=== PATIENT | female | born 1985 | race Caucasian/White ===

== ENCOUNTER 2020-10-01 08:51 | Outpatient (REF) | payer OTHER, SELFPAY ==
[2020-10-01 11:10] LABS: MANUAL DIFF FLAG NO
[2020-10-01 11:18] LABS: Basophils Percent Auto 0.5 % (0-2); Eosinophils Absolute Auto 0.1 X10*3/uL (0.0-0.4); Eosinophils Percent Auto 2.3 % (0-4); Hematocrit 42.1 % (37-47); Hemoglobin 14.4 g/dl (12.0-16.0); Imm Gran Abs Auto 0.02 X10*3/uL (0.00-0.03); Imm Gran Pct Auto 0.4 % (0.0-0.4); Lymphocytes Absolute Auto 1.6 X10*3/uL (1.2-4.9); Lymphocytes Percent Auto 28.6 % (20-40); Mean Corpuscular HGB Conc 34.2 g/dl (31.0-35.0); Mean Corpuscular Hemoglobin 31.4 pg (27.0-33.0); Mean Corpuscular Volume 91.7 fL (80-98); Mean Platelet Volume 10.4 fL (9.4-12.3); Monocytes Absolute Auto 0.4 X10*3/uL (0.1-1.2); Monocytes Percent Auto 6.9 % (2-11); Neutrophils Absolute Auto 3.5 X10*3/uL (2.0-8.3); Neutrophils Percent Auto 61.3 % (45-73); Platelet Count 242 X10*3/uL (160-400); Red Blood Count 4.59 X10*6/uL (4.20-5.50); Red Cell Distribution Width 12.1 % (11.0-16.0); White Blood Count 5.7 X10*3/uL (4.8-10.8)
[2020-10-01 12:07] LABS: TSH reflex Free T4 0.63 uIU/mL (0.32-4.0)
[2020-10-01 12:10] LABS: Alanine Aminotransferase 26 U/L (0-31); Albumin Level 4.2 g/dL (3.5-5.0); Alkaline Phosphatase 66 U/L (39-117); Anion Gap 13 (12-20); Aspartate Amino Transferase 27 U/L (5-31); Bilirubin Total 0.7 mg/dL (0.0-1.0); Blood Urea Nitrogen 15 mg/dL (9-16); Calcium 8.6 mg/dL (8.4-10.2); Carbon Dioxide 27 mmol/L (22-29); Chloride 102 mmol/L (96-108); Cholesterol 131 mg/dL; Estimated Glomerular Filt Rate > 60; Glucose Fasting 89 mg/dL (60-99); HDL Cholesterol 50 mg/dL; LDL Cholesterol Calculated 70 mg/dl; Sodium 138 mmol/L (135-145); Total Protein 6.6 g/dL (6.5-8.0); Triglycerides 55 mg/dL
[2020-10-01 12:16] LABS: Folate 12.1 ng/mL (> or = 4.0); Vitamin B12 511 pg/mL (200-900)
== END 2020-10-01 08:52 | disposition home or self-care (01) ==
LOC: HO.HMGCLDS 08:51
PROVIDERS: PCP Internal Medicine; Visit Provider Internal Medicine
DX: Z00.01 Encounter for general adult medical examination with abnormal findings (principal); E66.9 Obesity, unspecified
CPT/HCPCS: 36415; 80053; 80061; 82306; 82607; 82746; 84443; 85025

== ENCOUNTER 2021-09-30 10:35 | Outpatient (REF) | payer OTHER, SELFPAY ==
[2021-09-30 14:18] LABS: Alanine Aminotransferase 19 U/L (0-31); Anion Gap 13 (12-20); Aspartate Amino Transferase 19 U/L (5-31); Blood Urea Nitrogen 18 mg/dL (9-16); Carbon Dioxide 29 mmol/L (22-29); Chloride 102 mmol/L (96-108); Cholesterol 148 mg/dL; Estimated Glomerular Filt Rate > 60; Glucose Fasting 94 mg/dL (60-99); HDL Cholesterol 64 mg/dL; LDL Cholesterol Calculated 69 mg/dl; Potassium 4.5 mmol/L (3.3-5.1); Sodium 139 mmol/L (135-145); Triglycerides 78 mg/dL
[2021-09-30 14:42] LABS: Vitamin D 25-OH Total 40.2 ng/mL (>30)
== END 2021-09-30 10:36 | disposition home or self-care (01) ==
LOC: HO.HMGCLDS 10:35
PROVIDERS: PCP Internal Medicine; Visit Provider Internal Medicine
DX: Z00.01 Encounter for general adult medical examination with abnormal findings (principal); E66.9 Obesity, unspecified; E55.9 Vitamin D deficiency, unspecified
CPT/HCPCS: 36415; 80048; 80061; 82306; 84450; 84460

== ENCOUNTER 2022-10-03 08:50 | Outpatient (REF) | payer OTHER, SELFPAY ==
[2022-10-03 12:32] LABS: Cholesterol 130 mg/dL; Glucose Fasting 92 mg/dL (60-99); HDL Cholesterol 44 mg/dL; LDL Cholesterol Calculated 78 mg/dl; Triglycerides 40 mg/dL
[2022-10-03 12:44] LABS: TSH reflex Free T4 0.57 uIU/mL (0.32-4.0)
== END 2022-10-03 08:51 | disposition home or self-care (01) ==
LOC: HO.HMGCLDS 08:50
PROVIDERS: PCP Internal Medicine; Visit Provider Internal Medicine
DX: Z00.00 Encounter for general adult medical examination without abnormal findings (principal); E55.9 Vitamin D deficiency, unspecified; E66.9 Obesity, unspecified; F41.8 Other specified anxiety disorders
CPT/HCPCS: 36415; 80061; 82306; 82947; 84443

== ENCOUNTER 2023-07-04 08:02 | Outpatient (AMB) | payer OTHER, SELFPAY ==
--- NOTE | 2023-07-04 08:18 | MHC.OFFWIV ---
Intake Vital Signs 07/04/23 08:19 Height 5 ft 7 in Weight 210 lb BMI 32.9 BP 128/74 Blood Pressure Location Rt brachial Position Sitting Pulse 87 Pulse Source Pulse Oximeter Temp 98.3 F Temp Source Temporal Artery Scan Pulse Oximetry (%) 98 Intake Visit Reasons: EP, sore throat (masked) Intake Note: pt is here for c/o sore throat Patient Tobacco Use Status: Never used Tobacco Allergies No Known Allergies Allergy (Verified 07/04/23 08:20) Do you need a note to return to daycare/school/sports/work: Yes HPI HPI Comments History of Present Illness Details the patient is a 37-year-old female in today for a sick visit. She states that she woke up 1 day prior to appointment feeling of sore throat and fluid in her left ear. She has a small child at home who is sick. She took Motrin prior to appointment with good affect. Patient has no significant past medical history. States it feels like strep throat she had previously. Will obtain strep swab in office Patient's head is normocephalic, right TM not visible due to impacted cerumen, left TM visible with some fluid and erythema. Sinuses not tender. Nostrils patent. Pharynx normal. lung sounds clear throughout bilaterally. Normal heart rate and rhythm. Patient does not have chest pain or shortness of breath. Patient likely has left otitis media. Patient unlikely to have epiglottitis or have a threat airway. Patient instructed to use supportive medicine to alternate between using Tylenol and Motrin. Patient also educated on using warm salt water gargle, as well as tea to help soothe sore throat. Augmentin for 10 Days to treat left otitis media. patient has been instructed to take entire course of antibiotics even if she starts to feel better. patient has been educated on signs of worsening symptoms and when to return to the walk-in. [facility] Medical History (Updated 07/04/23 @ 08:53 by JOSE LUIS Da Silva) Otitis media, left Mixed anxiety depressive disorder Acute anxiety Lip lesion Vitamin D deficiency Obesity (BMI 30.0-34.9) Dermoid cyst Surgical History Hx of wisdom tooth extraction History of right oophorectomy Family History Maternal Grandmother Myocardial infarction Brother Substance use disorder Mental health disorder Sister Mental health disorder Mother Mental health disorder Social History Housing: House Alcohol intake: current Patient Tobacco Use Status: Never used Tobacco e-Cigarette/Vaping Use: Never Used service: No Current occupational status: employed Cognitive needs: No Hearing needs: No Vision needs: Yes Review of Systems Const Denies headache(s) Eyes Denies eye discharge and Denies irritation ENT Reports as per HPI, Denies dizziness and Denies headache(s) Resp Reports as per HPI Neuro Denies dizziness and Denies headache(s) Physical Exam Vital Signs: Last Vital Signs Temp 98.3 F 07/04/23 08:19 Pulse 87 07/04/23 08:19 BP 128/74 07/04/23 08:19 Pulse Ox 98 07/04/23 08:19 BMI result Body Mass Index 32.9 vital signs reviewed and stable Const General: cooperative, healthy appearing and no acute distress HEENT Head: Yes normocephalic Ears: TM normal on the right and TM abnormal ( left TM) bulging and erythematous General nose exam: Normal nares present Face and sinus: Yes sinuses nontender Mouth: Normal oral and palatal mucosa present Throat: Yes uvula midline Neck Neck: Yes no lymphadenopathy Resp Effort & Inspection: normal respiratory effort Auscultation: clear to auscultation bilaterally Cardio Jugular venous distension: no JVD Rate: regular rate Rhythm: regular rhythm Heart sounds: S1 normal heart sound present and S2 normal heart sound present Results AMB Rapid Strep AMB Rapid Strep Negative Last Edit by Marjorie Stewart CMA on 07/04/23 08:35 Assessment & Plan Assessment & Plan (1) Otitis media, left: Code(s): H66.92 - Otitis media, unspecified, left ear Qualifiers: Chronicity: acute Recurrence: non-recurrent Plan patient will be given Augmentin to be taken twice a day for 10 days. Patient educated to continue entire course of antibiotics even if they continue to feel better prior to completion of treatment. Orders: Orders AMB Rapid Strep Screen Today Z13.9 - Encounter for screening, unspecified Medications: New amoxicillin-pot clavulanate 875-125 mg 1 tab PO Q12H 20 tabs 0RF Coding Level of Care Code Est Pt Level 3 (79529) Diagnoses Otitis media, left H66.92 Chronicity: acute Recurrence: non-recurrent Time Spent (min) 20
[2023-07-04 08:19] VITALS: BP 128/74; PULSE 87; TEMP 36.8; O2SAT 98; BMI 32.9
== END 2023-07-04 08:58 | disposition home or self-care (01) ==
PROVIDERS: PCP Internal Medicine; Visit Provider Nurse Practitioner Primary Care
DX: H66.92 Otitis media, unspecified, left ear (principal); J02.9 Acute pharyngitis, unspecified
CPT/HCPCS: 87880; 99213

== ENCOUNTER 2023-08-14 10:31 | Outpatient (REF) | payer OTHER, SELFPAY ==
--- NOTE | ~2023-08-14 | US_ITS ---
EXAMINATION: US VENOUS WITH DOPPLER UPPER EXTREMITY, LEFT CLINICAL INFORMATION: 2 painful masses left forearm, left arm pain and swelling COMPARISON: None available. TECHNIQUE: Ultrasound of the upper extremity is performed using compression sonography and color and pulse Doppler flow with assessment of augmentation of flow. There is also imaging and Doppler assessment of the jugular and subclavian veins. Spectral analysis with color-flow imaging is performed. FINDINGS: Respiratory variation, normal compression, and augmented flow are noted throughout the upper extremity including the axillary, brachial, basilic, cephalic, and radial and ulnar veins. The left brachial veins appear duplicated (double arterial/venous systems).? High radial/ulnar vein branches into the upper arm. There is normal flow in the internal jugular and subclavian veins. There is no visible deep or superficial thrombophlebitis. Ultrasound of the area of the 2 palpable lumps in the medial left forearm, just below the elbow, demonstrate a 1.2 x 0.8 x 1.0 cm and 2.3 x 0.6 x 1.6 cm solid, subtle, superficial, hyperechoic area which may represent lipomas. US/US venous duplex UE LT IMPRESSION: 1. No DVT demonstrated in the left upper extremity. 2. Probable lipomas in the area of the 2 palpable lumps in the medial left forearm.
--- NOTE | ~2023-08-14 | US_ITS ---
EXAMINATION: ULTRASOUND EXTREMITY NONVASCULAR LIMITED CLINICAL INFORMATION: Painful forearm, painful mass on right forearm COMPARISON: Venous ultrasound of the left upper extremity with evaluation of 2 painful masses on the left forearm TECHNIQUE: Real-time ultrasound of the medial right forearm, just below the elbow, over the palpable area indicated by the patient. FINDINGS: Ultrasound of the area of the palpable lump in the medial right forearm, just below the elbow, demonstrate a 2.2 x 0.6 x 1.6 cm solid, subtle, superficial, hyperechoic area which may represent a lipoma. This is similar to the findings seen in the left forearm. US/US extremity nonvascular munoz IMPRESSION: Probable lipoma in the area of the palpable lump in the medial right forearm.
== END 2023-08-14 10:32 | disposition home or self-care (01) ==
LOC: HO.HMGCX 10:31
PROVIDERS: PCP Internal Medicine; Visit Provider Internal Medicine
DX: R22.31 Localized swelling, mass and lump, right upper limb (principal); R22.32 Localized swelling, mass and lump, left upper limb; M79.632 Pain in left forearm; M79.89 Other specified soft tissue disorders
CPT/HCPCS: 76882; 93971

== ENCOUNTER 2023-09-22 09:06 | Outpatient (AMB) | payer OTHER, SELFPAY ==
[2023-09-22 09:21] VITALS: BP 124/70; PULSE 78; TEMP 36.8; O2SAT 99; BMI 33.4
--- NOTE | 2023-09-22 09:21 | MHC.OFFWIV ---
Intake Vital Signs 09/22/23 09:21 Height 5 ft 7 in Weight 96.615 kg BMI 33.4 BP 124/70 Blood Pressure Location Lt brachial Position Sitting Pulse 78 Pulse Source Pulse Oximeter Temp 98.2 F Temp Source Temporal Artery Scan Pulse Oximetry (%) 99 Intake Visit Reasons: EP Cough [phone] Intake Note: pt is here today for cough started monday Patient Tobacco Use Status: Never used Tobacco Allergies No Known Allergies Allergy (Verified 09/22/23 09:23) Do you need a note to return to daycare/school/sports/work: No HPI HPI Comments History of Present Illness Details 37-year-old female history of anxiety, obesity, presenting to the clinic for evaluation of cough that started Monday also having a slight diffuse headache (without trauma visual disturbances, weakness) started yesterday w/ cough and monday prior to that had subjective fever. Patient reports she just feels unwell and tired. Sx worse at night. No known sick contacts. Denies fevers, chills, chest pain, shortness of breath, vision changes, dizziness, weakness, trauma, difficulties with ambulation, nausea, vomiting, abdominal pain, diarrhe at this time. Physical examination benign Likely viral illness versus asthma versus bronchitis. Unlikely bacterial pneumonia, pulmonary embolism ( perc -), ACS, no signs of respiratory distress. No signs of intracranial hemorrhage, stroke, posterior stroke, meningitis or encephalitis Plan at this time will discharge with, prednisone, benzonatate and albuterol. [facility] Medical History Lipoma of left forearm Otitis media, left Mixed anxiety depressive disorder Acute anxiety Lip lesion Vitamin D deficiency Obesity (BMI 30.0-34.9) Dermoid cyst Surgical History Hx of wisdom tooth extraction History of right oophorectomy Family History Maternal Grandmother Myocardial infarction Brother Substance use disorder Mental health disorder Sister Mental health disorder Mother Mental health disorder Social History Housing: House Alcohol intake: current Patient Tobacco Use Status: Never used Tobacco e-Cigarette/Vaping Use: Never Used service: No Current occupational status: employed Cognitive needs: No Hearing needs: No Vision needs: Yes Review of Systems Const All systems reviewed & are unremarkable except as noted in HPI and below Physical Exam Vital Signs: Last Vital Signs Temp 98.2 F 09/22/23 09:21 Pulse 78 09/22/23 09:21 BP 124/70 09/22/23 09:21 Pulse Ox 99 09/22/23 09:21 BMI result Body Mass Index 33.4 Vital signs stable Appearance: Alert.? Oriented X3.? No acute distress.? Head: Normocephalic, atraumatic, no step-offs or deformities Eyes: Pupils equal, round and reactive to light.? ENT: Pharynx normal.? Neck: Normal inspection.? Neck supple.? CVS: Normal heart rate and rhythm.? Pulses normal.? Respiratory: No respiratory distress.? Breath sounds normal.? Abdomen: Soft and nontender.? Skin: Skin warm and dry.? Normal skin color.? Normal skin turgor.? Extremities: No lower extremity edema.? No calf ttp. 5/5 strength to bilateral upper and lower extremities Neuro: Oriented X 3.? No motor deficit.? No sensory deficit. CN 2-12 intact . Normal [id number] crar-lm-[id number] steady tandem gait normal coordination. NIH stroke scale 0 Assessment & Plan Assessment & Plan (1) Viral illness: Code(s): B34.9 - Viral infection, unspecified Plan Take your medications as prescribed. If you were prescribed antibiotics today, it is important that you take your medication to their entirety, do not skip any doses, do not finish them early. Follow-up with your primary care provider this week. Return to the emergency department with new or worsening symptoms. Such as fevers, chills, chest pain, shortness of breath, nausea, vomiting, dizziness, headache, vision changes, lethargy In case of emergency call 911 Medications: New prednisone 40 mg (2 x 20 mg) PO DAILY 10 tabs 0RF 5 days albuterol sulfate 90 mcg/actuation 2 puffs inhalation Q6H PRN 6.7 grams 0RF shortness of breath or wheezing benzonatate 100 mg PO BID PRN 14 caps 0RF cough Coding Level of Care Code Est Pt Level 3 (52071) Diagnoses Viral illness B34.9
== END 2023-09-22 10:40 | disposition home or self-care (01) ==
PROVIDERS: PCP Internal Medicine; Visit Provider Physician Assistant
DX: B34.9 Viral infection, unspecified (principal)
CPT/HCPCS: 99213

== ENCOUNTER 2023-10-04 08:24 | Outpatient (AMB) | payer OTHER, SELFPAY ==
[2023-10-04 08:29] VITALS: BP 128/84; PULSE 86; O2SAT 98; BMI 33.4
--- NOTE | 2023-10-04 08:29 | A.OFFPC_ITS ---
Vital Signs 10/04/23 08:29 Height 5 ft 7 in Weight 213 lb BMI 33.4 BP 128/84 Blood Pressure Location Lt brachial Position Sitting Pulse 86 Pulse Source Pulse Oximeter Pulse Oximetry (%) 98 Oxygen Delivery Method Room Air Intake Visit Reasons: Annual PE Intake Note: Pt is here today for her PE: Papsmear 01/04/21 Is last menstrual period known: Yes Last menstrual period: 09/20/23 Allergies No Known Allergies Allergy (Verified 10/04/23 09:06) Medication List - Last Reconciled 10/04/23 by Sanjana Whyte MD albuterol sulfate 90 mcg/actuation 2 puffs inhalation Q6H PRN benzonatate 100 mg PO BID PRN levonorgestrel-ethinyl estrad 0.1-20 mg-mcg (Vienva) 1 tab PO DAILY multivitamin 1 tab PO DAILY Tobacco use date assessed: 10/04/23 Dental Screening Dental Screen Date: 10/04/23 Did you have a dental visit in the last 12 months?: Yes Did you have a dental problem in the last 6 months where you did not have access to dental care?: No Was dental information given to patient?: Patient has dentist HPI Annual PE HPI Details 37 year old lady here today for her phys ical exam. She goes to [facility] for her routine Pap and pelvic exam, currently up-to-date. She does not want to get any vaccinations at present time. Complains of a cough now productive of yellow phlegm accompanied by frontal headaches, generalized body aches but no fever. This has been present now for more than 10 days. Initially was seen at the walk-in and treated for viral illness and prescribed prednisone and albuterol inhaler and benzonatate capsules which afforded only temporary relief. Has tested negative for COVID twice already [facility] Medical History Lipoma of left forearm Otitis media, left Mixed anxiety depressive disorder Acute anxiety Lip lesion Vitamin D deficiency Obesity (BMI 30.0-34.9) Dermoid cyst Surgical History Hx of wisdom tooth extraction History of right oophorectomy Family History Maternal Grandmother Myocardial infarction Brother Substance use disorder Mental health disorder Sister Mental health disorder Mother Mental health disorder Social History Housing: House Alcohol intake: current Patient Tobacco Use Status: Never used Tobacco e-Cigarette/Vaping Use: Never Used service: No Current occupational status: employed Cognitive needs: No Hearing needs: No Vision needs: Yes Female Reproductive History Menstrual Date of last menstrual period: 09/20/23 Questionnaire PHQ-9 Over the last 2 weeks, how often have you been bothered by any of the following problems? 1. Little interest or pleasure in doing things: not at all 2. Feeling down, depressed, or hopeless: not at all 3. Trouble falling or staying asleep, or sleeping too much: several days 4. Feeling tired or having little energy: several days 5. Poor appetite or overeating: not at all 6. Feeling bad about yourself - or that you are a failure or have let yourself or your family down: not at all 7. Trouble concentrating on things, such as reading the newspaper or watching television: not at all 8. Moving or speaking so slowly that other people could have noticed. Or the opposite - being so fidgety or restless that you have been moving around a lot more than usual: not at all 9. Thoughts that you would be better off or of hurting yourself in some way: not at all Total score: 2 Depression Screening Interpretation: Negative Depression Screening Done: Yes 75591 - PHQ-9 Billing: Yes Source: Developed by Drs. Jcarlos James, Kaleigh Lin, Jaden Gaston and colleagues, with an educational jacquelin from [employer]. Thrive Questionnaire Date Thrive assessed: 10/04/23 I am a: Patient What is your living situation today?: I have a steady place to live Within the past 12 months, did the food you bought not last and you didn't have the money to get more?: Never true Within the past 12 months, did you worry whether your food would run out before you got money to buy more?: Never true Do you have trouble paying for medicines?: No Do you have trouble getting transportation to medical appointments?: No Do you have trouble paying your heating and electricity bill?: No Do you have trouble taking care of your child, family member or friend?: No Do you have trouble with day-to-day activities such as bathing, preparing meals, shopping, managing finances, etc.?: No Are you currently unemployed and looking for a job?: No Are you interested in more education?: No THRIVE Score: 0 AUDIT C Alcohol Use Questionnaire (AUDIT-C) 1. How often do you have a drink containing alcohol?: Monthly or less 2. How many drinks containing alcohol do you have on a typical day when you are drinking?: 3 or 4 3. How often do you have six or more drinks on one occasion?: Never Total Score: 2 SHYAM-7 AMB Questionnaire SHYAM-7 Date SHYAM - 7 assessed: 10/03/22 Feeling nervous, anxious, or on edge: 1 = Several days Not being able to stop or control worryin = Not at all Worrying too much about different things: 1 = Several days Trouble relaxin = Several days Being so restless that it is hard to sit still: 0 = Not at all Becoming easily annoyed or irritable: 1 = Several days Feeling afraid as if something awful might happen: 0 = Not at all Total SHYAM-7 score (0-4 normal; 5-9 mild; 10-14 moderate; 15-21 severe): 4 Source: Developed by Drs. Jcarlos James, Kaleigh Lin, Jaden Gaston and colleagues, with an educational jacquelin from [employer]. SHYAM-7 Assessment Billing SHYAM-7 Assessment Tool: SHYAM-7 Assessment 45759 Review of Systems Const Reports body aches, Denies fever(s), Reports headache(s) (Front) and Denies weakness Eyes Details: Wears contact lenses, sees [facility] Denies change in vision ENT Denies dizziness, Denies ear discharge, Reports otalgia, Reports facial pain (Right maxillary area), Reports headache(s) (Front), Denies nasal congestion, Denies nasal discharge and Reports post nasal drip Card Denies chest pain, Denies lightheadedness, Denies palpitations and Denies dyspnea Resp Reports as per HPI, Denies chest congestion, Denies dyspnea and Denies wheezing GI Denies abdominal pain, Denies change in bowel habits and Denies heartburn Denies urinary frequency, Denies dysuria and Denies urinary urgency Musc Denies back pain, Denies myalgias, Denies arthralgias, Denies joint swelling, Denies limited range of motion, Denies muscle cramps, Denies muscle weakness and Denies stiffness Skin/Breast Reports new lesions (Nonpainful lump on left forearm) and Denies rash Neuro Denies dizziness, Reports headache(s) (Front) and Denies weakness Psych Reports as per HPI Endo Denies polydipsia, Denies polyuria and Denies palpitations Rachid/Lymph Denies easy bleeding and Denies easy bruising Aller/Immun Denies seasonal rhinorrhea and Denies wheezing Physical exam (Primary Care) Vital Signs: Last Vital Signs Pulse 86 10/04/23 08:29 BP 128/84 10/04/23 08:29 Pulse Ox 98 10/04/23 08:29 Oxygen Delivery Method Room Air 10/04/23 08:29 BMI result Body Mass Index 33.4 Tobacco/Smoking Status: Tobacco use Status Tobacco use date assessed 10/04/23 10/04/23 08:38 Patient Tobacco Use Status Never used Tobacco 10/04/23 08:38 e-Cigarette/Vaping Use Never Used 10/04/23 08:38 PHQ-9: PHQ-9 Score PHQ-9: Total score 5 10/04/23 08:38 Depression Screening Interpretation: Negative Thrive Assessment: Date of Thrive Assessment Date Thrive assessed 10/04/23 10/04/23 08:38 Const General: no acute distress and alert Nutritional Appearance: obese Orientation/consciousness: patient oriented x3 HENMT Head: Yes normocephalic Ears: external ears normal, TM's normal bilaterally and Abnormal EAC present erythema bilateral General nose exam: Normal external nose present and No nasal discharge present Face and sinus: Yes face symmetric and Yes sinus tenderness (Right maxillary area) Mouth: Normal oral and palatal mucosa present, oropharynx normal and moist mucous membranes Eyes General: appearance normal, both eyes and all related structures Eyelids: Yes eyelids normal Conjunctivae: conjunctivae normal Sclerae: sclerae normal Pupils: Equal, round and reactive pupils present EOM: EOMs intact bilaterally Neck Neck: Yes full ROM, Yes no lymphadenopathy and Yes supple Thyroid: Thyroid normal Chest Breast/axilla palpation: normal palpation of the breasts Resp Effort & Inspection: normal respiratory effort and able to speak in complete sentences Auscultation: clear to auscultation bilaterally Cardio Rate: regular rate Rhythm: regular rhythm Heart sounds: S1 normal heart sound present and S2 normal heart sound present GI Palpation (GI): Soft to palpation, nontender, no guarding and no masses Auscultation: normal bowel sounds General: Yes no CVA tenderness Back/Spine/Pelvis Back: no CVA tenderness and No back tenderness Skin Other: Small palpable mobile nontender nodular lesion on left forearm Neuro General: patient oriented x3, gait normal, moves all extremities, Normal light touch and pain sensation, no focal motor deficits and CN's II-XI intact bilaterally Cranial nerves: Yes Equal, round and reactive pupils present Cognition (Neuro): normal cognition Gait exam (Neuro): Normal gait present Motor exam (neuro): 5/5 motor strength present throughout Extrem General: Yes normal to inspection, Yes full ROM, Yes no joint enlargement, Yes no pedal edema and Yes normal gait Psych Appearance: grossly normal and well kempt Mental Status: mental status grossly normal Speech and movement: Normal speech and movement present Affect: normal affect Attitude: cooperative Thought process: Normal thought process present Thought content: Normal thought content present Assessment and Plan Assessment & Plan (1) Annual visit for general adult medical examination with abnormal findings: Code(s): Z00.01 - Encounter for general adult medical examination with abnormal findings Plan: Will check appropriate labs. Continue with regular dental visit every 6 months and regular eye exams, at least every 2 years. Take adequate calcium in diet and vitamin-D 3 at 2000 IU per cap once a day, in addition to weight-bearing exercises to help maintain good muscle tone and weight control. Instructed to do self-breast exam, and recommended to get yearly mammogram, starting at age 40. Sees [facility] for routine Pap and pelvic exam, currently up-to-date declines getting any vaccines at present time (2) Vitamin D deficiency: Code(s): E55.9 - Vitamin D deficiency, unspecified Plan: Check vitamin-D (3) Obesity (BMI 30.0-34.9): Code(s): E66.9 - Obesity, unspecified Plan: Discussed need to increase activity and wt reduction. Recommended focusing on improving your health instead of dieting. : Eat Mediterranean diet, limit foods high in fat, sugar, and calories, eat slowly, pay attention to portion sizes, plan your meals ahead of time, start regular physical activity 150 minutes of moderate intensity exercise or 90 minutes/week of vigorous exercise and increase water intake. (4) Acute sinusitis: Code(s): J01.90 - Acute sinusitis, unspecified Plan: Prescription sent for amoxicillin clavulanic acid 875 mg per tablet to take 1 every 12 hours for 10 days (5) Lipoma of left forearm: Code(s): D17.22 - Benign lipomatous neoplasm of skin and subcutaneous tissue of left arm Plan: Currently asymptomatic Orders: Orders Complete Blood Count Auto Diff Today E55.9 - Vitamin D deficiency, unspecified, E66.9 - Obesity, unspecified, J01.90 - Acute sinusitis, unspecified, Z00.01 - Encounter for general adult medical examination with abnormal findings Vitamin D 25-OH Total Today E55.9 - Vitamin D deficiency, unspecified, E66.9 - Obesity, unspecified, J01.90 - Acute sinusitis, unspecified, Z00.01 - Encounter for general adult medical examination with abnormal findings Basic Metabolic Panel Fasting Today E55.9 - Vitamin D deficiency, unspecified, E66.9 - Obesity, unspecified, J01.90 - Acute sinusitis, unspecified, Z00.01 - Encounter for general adult medical examination with abnormal findings Lipid Panel Today E55.9 - Vitamin D deficiency, unspecified, E66.9 - Obesity, unspecified, J01.90 - Acute sinusitis, unspecified, Z00.01 - Encounter for general adult medical examination with abnormal findings Medications: New amoxicillin-pot clavulanate 875-125 mg 1 tab PO Q12H 20 tabs 0RF Coding Level of Care Code Est Pt Prev Care 18-39y(25340) Diagnoses Annual visit for general adult medical examination with abnormal findings Z00.01 Vitamin D deficiency E55.9 Obesity (BMI 30.0-34.9) E66.9 Acute sinusitis J01.90 Lipoma of left forearm D17.22 Additional Codes SHYAM-7 Assessment Billing - SHYAM-7 Assessment Tool: SHYAM-7 Assessment 64525 ([id number])
== END 2023-10-04 09:20 | disposition home or self-care (01) ==
PROVIDERS: Visit Provider Internal Medicine
DX: Z00.01 Encounter for general adult medical examination with abnormal findings (principal); Z68.33 Body mass index [BMI] 33.0-33.9, adult; E66.9 Obesity, unspecified; J01.90 Acute sinusitis, unspecified; E55.9 Vitamin D deficiency, unspecified; D17.22 Benign lipomatous neoplasm of skin and subcutaneous tissue of left arm
CPT/HCPCS: 99213; 99395

== ENCOUNTER 2023-10-04 09:21 | Outpatient (REF) | payer OTHER, SELFPAY ==
[2023-10-04 11:48] LABS: Basophils Percent Auto 0.5 % (0-2); Eosinophils Absolute Auto 0.1 X10*3/uL (0.0-0.4); Eosinophils Percent Auto 1.4 % (0-4); Hematocrit 41.2 % (37.0-47.0); Hemoglobin 14.2 g/dl (12.0-16.0); Imm Gran Abs Auto 0.04 X10*3/uL (0.00-0.03); Imm Gran Pct Auto 0.5 % (0.0-0.4); Lymphocytes Absolute Auto 0.6 X10*3/uL (1.2-4.9); Lymphocytes Percent Auto 6.9 % (20-40); MANUAL DIFF FLAG NO; Mean Corpuscular HGB Conc 34.5 g/dl (31.0-35.0); Mean Corpuscular Hemoglobin 31.3 pg (27.0-33.0); Mean Corpuscular Volume 90.7 fL (80.0-98.0); Mean Platelet Volume 9.9 fL (9.4-12.3); Monocytes Absolute Auto 0.8 X10*3/uL (0.1-1.2); Monocytes Percent Auto 9.9 % (2-11); Neutrophils Absolute Auto 6.5 x10*3/uL (2.0-8.3); Neutrophils Percent Auto 80.8 % (45-73); Platelet Count 221 X10*3/uL (160-400); Red Blood Count 4.54 X10*6/uL (4.20-5.50); White Blood Count 8.1 X10*3/uL (4.8-10.8)
[2023-10-04 12:57] LABS: Anion Gap 11 (12-20); Blood Urea Nitrogen 16 mg/dL (9-16); Calcium 9.5 mg/dL (8.4-10.2); Carbon Dioxide 27 mmol/L (22-29); Chloride 103 mmol/L (96-108); Cholesterol 125 mg/dL (<200); Estimated Glomerular Filt Rate > 60; Glucose Fasting 95 mg/dL (60-99); HDL Cholesterol 55 mg/dL (>40); LDL Cholesterol Calculated 63 mg/dL (<100); Potassium 3.9 mmol/L (3.3-5.1); Sodium 137 mmol/L (135-145); Triglycerides 37 mg/dL (<150)
[2023-10-04 13:18] LABS: Vitamin D 25-OH Total 39.7 ng/mL (>30)
== END 2023-10-04 09:22 | disposition home or self-care (01) ==
LOC: HO.HMGCLDS 09:21
PROVIDERS: PCP Internal Medicine; Visit Provider Internal Medicine
DX: Z00.01 Encounter for general adult medical examination with abnormal findings (principal); E55.9 Vitamin D deficiency, unspecified; E66.9 Obesity, unspecified; J01.90 Acute sinusitis, unspecified
CPT/HCPCS: 36415; 80048; 80061; 82306; 85025

== ENCOUNTER 2024-04-24 08:45 | Outpatient (AMB) | payer OTHER, SELFPAY ==
[2024-04-24 09:03] VITALS: BP 114/76; PULSE 104; TEMP 36.9; O2SAT 98; BMI 29.4
--- NOTE | 2024-04-24 09:03 | MHC.OFFWIV ---
Intake Vital Signs 04/24/24 09:03 Height 5 ft 7 in Weight 187 lb 8 oz BMI 29.4 BP 114/76 Blood Pressure Location Rt brachial Position Sitting Pulse 104 H Pulse Source Pulse Oximeter Temp 98.4 F Temp Source Oral Pulse Oximetry (%) 98 Oxygen Delivery Method Room Air Intake Visit Reasons: EP- fever, sore throat, stomach aches Intake Note: Carmen is a 38 year old female who presents to the office today for a fever,sore throat,body aches,headache, and a cough that started 2 days ago. Patient Tobacco Use Status: Never used Tobacco Allergies No Known Allergies Allergy (Verified 04/24/24 09:06) HPI HPI Comments History of Present Illness Details Patient is a 38-year-old female complaining of fever with a tmax 101.9F, sore throat, body aches, headache, and a cough that started 2 days ago. She states that the body aches are so bad that she could not even get out of bed so she took some Tylenol and some Motrin and some Mucinex which seems to be helping a little bit because she was able to get out of bed this morning. She states she has been drinking mekhi tonia and water but not able to tolerate much else. She states she did test for COVID twice and was negative PFSH Medical History Lipoma of left forearm Otitis media, left Mixed anxiety depressive disorder Acute anxiety Lip lesion Vitamin D deficiency Obesity (BMI 30.0-34.9) Dermoid cyst Surgical History Hx of wisdom tooth extraction History of right oophorectomy Family History Maternal Grandmother Myocardial infarction Brother Substance use disorder Mental health disorder Sister Mental health disorder Mother Mental health disorder Social History Housing: House Alcohol intake: current Patient Tobacco Use Status: Never used Tobacco e-Cigarette/Vaping Use: Never Used service: No Current occupational status: employed Cognitive needs: No Hearing needs: No Vision needs: Yes Review of Systems Const All systems reviewed & are unremarkable except as noted in HPI and below Physical Exam Vital Signs: Last Vital Signs Temp 98.4 F 04/24/24 09:03 Pulse 104 H 04/24/24 09:03 BP 114/76 04/24/24 09:03 Pulse Ox 98 04/24/24 09:03 Oxygen Delivery Method Room Air 04/24/24 09:03 BMI result Body Mass Index 29.4 Const General: cooperative, healthy appearing, comfortable and no acute distress Orientation/consciousness: patient oriented x3 Limitations: no limitations HEENT Head: Yes normal to inspection Ears: hearing grossly normal bilaterally, external ears normal and TM's normal bilaterally General nose exam: Normal external nose present, Normal nares present and No nasal discharge present Face and sinus: Yes normal facial exam and Yes sinuses nontender Mouth: Normal oral and palatal mucosa present and moist mucous membranes Throat: Yes tonsils normal, Yes uvula midline and Yes posterior oropharynx abnormal (Erythema) Eyes General: appearance normal, both eyes and all related structures Neck Neck: Yes normal visual inspection Resp Effort & Inspection: normal respiratory effort, able to speak in complete sentences, Actively coughing, no respiratory distress, not tachypneic, no tripod positioning and no use of accessory muscles Auscultation: clear to auscultation bilaterally Cardio Rate: regular rate Rhythm: regular rhythm Heart sounds: normal S1 and S2 Skin General skin exam: no rashes or lesions noted Neuro General: patient oriented x3 Extrem General: Yes normal to inspection and Yes no clubbing, cyanosis or edema Results AMB Rapid Strep AMB Rapid Strep Negative Last Edit by Fiona Soares CMA on 04/24/24 09:17 Assessment & Plan Assessment & Plan (1) Upper respiratory tract infection: Code(s): J06.9 - Acute upper respiratory infection, unspecified Qualifiers: URI type: unspecified URI Qualified Code(s): J06.9 - Acute upper respiratory infection, unspecified Plan: Recommended patient treat herself with [id number] medications for her symptoms. Sent flu COVID and RSV testing. If COVID is negative, I may send an antibiotic to her pharmacy. Plan See above Orders: Orders SARS-CoV2/FLU/RSV Today J06.9 - Acute upper respiratory infection, unspecified Coding Level of Care Code Est Pt Level 3 (87399) Diagnoses Upper respiratory tract infection, unspecified type J06.9 URI type: unspecified URI
== END 2024-04-24 09:38 | disposition home or self-care (01) ==
PROVIDERS: PCP Internal Medicine; Visit Provider Physician Assistant
DX: J06.9 Acute upper respiratory infection, unspecified (principal); Z13.9 Encounter for screening, unspecified
CPT/HCPCS: 87880; 99213

== ENCOUNTER 2024-04-24 09:15 | Outpatient (REF) | payer OTHER, SELFPAY ==
[2024-04-24 11:57] LABS: Influenza A PCR NEGATIVE (Negative); Influenza B PCR NEGATIVE (Negative); Resp Syncy Virus RNA Qual PCR NEGATIVE (Negative); SARS COV2 PCR INHOUSE NEGATIVE (Negative)
== END 2024-04-24 09:16 | disposition home or self-care (01) ==
LOC: HO.LAB 09:15
PROVIDERS: Visit Provider Physician Assistant
DX: J06.9 Acute upper respiratory infection, unspecified (principal)
CPT/HCPCS: 0241U

== ENCOUNTER 2024-10-09 08:27 | Outpatient (AMB) | payer OTHER, SELFPAY ==
[2024-10-09 08:52] VITALS: BP 112/80; PULSE 90; RESP 18; TEMP 36.8; O2SAT 100; BMI 30.4
--- NOTE | 2024-10-09 08:52 | A.OFFPC_ITS ---
Vital Signs 10/09/24 08:52 Height 5 ft 7 in Weight 194 lb BMI 30.4 BP 112/80 Blood Pressure Location Rt brachial Position Sitting Respiration 18 Pulse 90 Pulse Source Pulse Oximeter Temp 98.2 F Temp Source Oral Pulse Oximetry (%) 100 Oxygen Delivery Method Room Air Intake Visit Reasons: Annual exam Intake Note: Pt is here today for her PE Is last menstrual period known: Yes Last menstrual period: 09/17/24 Allergies No Known Allergies Allergy (Verified 10/09/24 09:17) Medication List - Last Reconciled 10/09/24 by Sanjana Whyte MD multivitamin 1 tab PO DAILY Tobacco use date assessed: 10/09/24 Dental Screening Dental Screen Date: 10/09/24 Did you have a dental visit in the last 12 months?: No Did you have a dental problem in the last 6 months where you did not have access to dental care?: No Was dental information given to patient?: Patient has dentist HPI Annual exam HPI Details 38-year-old lady , here today for her ph ysical exam. She now goes to [facility], for her routine Pap and pelvic exam, just had an exam this year per patient. She is now due for a breast cancer screening. Has been feeling well, with no complaints at present time. [facility] Medical History Lipoma of left forearm Mixed anxiety depressive disorder Vitamin D deficiency Obesity (BMI 30.0-34.9) Dermoid cyst Surgical History Hx of wisdom tooth extraction History of right oophorectomy Family History Maternal Grandmother Myocardial infarction Brother Substance use disorder Mental health disorder Sister Mental health disorder Mother Mental health disorder Social History Housing: House Alcohol intake: current Patient Tobacco Use Status: Never used Tobacco e-Cigarette/Vaping Use: Never Used service: No Current occupational status: employed Cognitive needs: No Hearing needs: No Vision needs: Yes Female Reproductive History Menstrual Date of last menstrual period: 09/17/24 Questionnaire PHQ-9 Over the last 2 weeks, how often have you been bothered by any of the following problems? 1. Little interest or pleasure in doing things: not at all 2. Feeling down, depressed, or hopeless: not at all 3. Trouble falling or staying asleep, or sleeping too much: several days 4. Feeling tired or having little energy: several days 5. Poor appetite or overeating: not at all 6. Feeling bad about yourself - or that you are a failure or have let yourself or your family down: not at all 7. Trouble concentrating on things, such as reading the newspaper or watching television: not at all 8. Moving or speaking so slowly that other people could have noticed. Or the opposite - being so fidgety or restless that you have been moving around a lot more than usual: not at all 9. Thoughts that you would be better off or of hurting yourself in some way: not at all Total score: 2 Depression Screening Interpretation: Negative Depression Screening Done: Yes 90533 - PHQ-9 Billing: Yes Source: Developed by Drs. Jcarlos James, Kaleigh Lin, Jaden Gaston and colleagues, with an educational jacquelin from [employer]. Thrive Questionnaire Date Thrive assessed: 10/09/24 I am a: Patient What is your living situation today?: I have a steady place to live Within the past 12 months, did the food you bought not last and you didn't have the money to get more?: Never true Within the past 12 months, did you worry whether your food would run out before you got money to buy more?: Never true Do you have trouble paying for medicines?: I choose not to answer this question Do you have trouble getting transportation to medical appointments?: No Do you have trouble paying your heating and electricity bill?: No Do you have trouble taking care of your child, family member or friend?: No Do you have trouble with day-to-day activities such as bathing, preparing meals, shopping, managing finances, etc.?: No Are you currently unemployed and looking for a job?: No Are you interested in more education?: No Please select the resources that you would like help with: None Currently or been in a relationship where the following occur: No concerns reported THRIVE Score: 0 AUDIT C Alcohol Use Questionnaire (AUDIT-C) 1. How often do you have a drink containing alcohol?: Monthly or less 2. How many drinks containing alcohol do you have on a typical day when you are drinking?: 1 or 2 3. How often do you have six or more drinks on one occasion?: Less than monthly Total Score: 2 SHYAM-7 AMB Questionnaire SHYAM-7 Date SHYAM - 7 assessed: 10/09/24 Feeling nervous, anxious, or on edge: 0 = Not at all Not being able to stop or control worryin = Not at all Worrying too much about different things: 0 = Not at all Trouble relaxin = Not at all Being so restless that it is hard to sit still: 0 = Not at all Becoming easily annoyed or irritable: 0 = Not at all Feeling afraid as if something awful might happen: 0 = Not at all Total SHYAM-7 score (0-4 normal; 5-9 mild; 10-14 moderate; 15-21 severe): 0 Source: Developed by Drs. Jcarlos James, Kaleigh Lin, Jaden Gaston and colleagues, with an educational jacquelin from [employer]. SHYAM-7 Assessment Billing SHYAM-7 Assessment Tool: SHYAM-7 Assessment 02339 Review of Systems Const Denies fever(s) and Denies weakness Eyes Details: Wears contact lenses, sees [facility] Denies change in vision ENT Denies dizziness, Denies ear discharge, Denies nasal congestion and Denies nasal discharge Card Denies chest pain, Denies lightheadedness, Denies palpitations and Denies dyspnea Resp Denies chest congestion, Denies dyspnea and Denies wheezing GI Denies abdominal pain, Denies change in bowel habits and Denies heartburn Denies urinary frequency, Denies dysuria and Denies urinary urgency Musc Denies back pain, Denies myalgias, Denies arthralgias, Denies joint swelling, Denies limited range of motion, Denies muscle cramps, Denies muscle weakness and Denies stiffness Skin/Breast Details: Lipoma left forearm still present but seems to have decreased in size, as per patient, has been seen at [facility] dermatology for her skin cancer screening Denies rash Neuro Denies dizziness and Denies weakness Psych Reports no additional complaints Endo Denies polydipsia, Denies polyuria and Denies palpitations Rachid/Lymph Denies easy bleeding and Denies easy bruising Aller/Immun Denies seasonal rhinorrhea and Denies wheezing Physical exam (Primary Care) Vital Signs: Last Vital Signs Temp 98.2 F 10/09/24 08:52 Pulse 90 10/09/24 08:52 Resp 18 10/09/24 08:52 BP 112/80 10/09/24 08:52 Pulse Ox 100 10/09/24 08:52 Oxygen Delivery Method Room Air 10/09/24 08:52 BMI result Body Mass Index 30.4 Tobacco/Smoking Status: Tobacco use Status Tobacco use date assessed 10/09/24 10/09/24 08:53 Patient Tobacco Use Status Never used Tobacco 10/09/24 08:53 e-Cigarette/Vaping Use Never Used 10/09/24 08:53 PHQ-9: PHQ-9 Score PHQ-9: Total score 2 10/09/24 09:00 Depression Screening Interpretation: Negative Thrive Assessment: Date of Thrive Assessment Date Thrive assessed 10/09/24 10/09/24 09:00 Currently or been in a relationship where the following occur: No concerns reported Advance Care Planning discussion: Completed/Scanned Date of discussion: 10/09/24 Who was present: Patient Forms completed: Health Care Proxy Time spent: 16-45 minutes Actual minutes spent: 2 Const General: no acute distress and alert Nutritional Appearance: obese Orientation/consciousness: patient oriented x3 HENMT Head: Yes normocephalic Ears: external ears normal and TM's normal bilaterally General nose exam: Normal external nose present and No nasal discharge present Face and sinus: Yes face symmetric Mouth: Normal oral and palatal mucosa present, oropharynx normal and moist mucous membranes Eyes General: appearance normal, both eyes and all related structures Eyelids: Yes eyelids normal Conjunctivae: conjunctivae normal Sclerae: sclerae normal Pupils: Equal, round and reactive pupils present EOM: EOMs intact bilaterally Neck Neck: Yes full ROM, Yes no lymphadenopathy and Yes supple Thyroid: Thyroid normal Chest Breast/axilla palpation: normal palpation of the breasts Resp Effort & Inspection: normal respiratory effort and able to speak in complete sentences Auscultation: clear to auscultation bilaterally Cardio Rate: regular rate Rhythm: regular rhythm Heart sounds: S1 normal heart sound present and S2 normal heart sound present GI Palpation (GI): Soft to palpation, nontender, no guarding and no masses Auscultation: normal bowel sounds General: Yes no CVA tenderness Back/Spine/Pelvis Back: no CVA tenderness and No back tenderness Skin Other: Small palpable mobile nontender nodular lesion on left forearm Neuro General: patient oriented x3, gait normal, moves all extremities, Normal light touch and pain sensation, no focal motor deficits and CN's II-XI intact bilaterally Cranial nerves: Yes Equal, round and reactive pupils present Cognition (Neuro): normal cognition Gait exam (Neuro): Normal gait present Motor exam (neuro): 5/5 motor strength present throughout Extrem General: Yes normal to inspection, Yes full ROM, Yes no joint enlargement, Yes no pedal edema and Yes normal gait Psych Appearance: grossly normal and well kempt Mental Status: mental status grossly normal Speech and movement: Normal speech and movement present Affect: normal affect Attitude: cooperative Thought process: Normal thought process present Thought content: Normal thought content present Coding Level of Care Code Est Pt Prev Care 40-64y(82143) Diagnoses Annual visit for general adult medical examination with abnormal findings Z00.01 Obesity (BMI 30.0-34.9) E66.9 Lipoma of left forearm D17.22 History of vitamin D deficiency Z86.39 Encounter for counseling regarding advance directives Z71.89 Additional Codes PHQ-9 - 66458 - PHQ-9 Billing: Yes ([id number]) SHYAM-7 Assessment Billing - SHYAM-7 Assessment Tool: SHYAM-7 Assessment 25346 ([id number]) Vital Signs *Quality* - Advance Care Planning discussion: Completed/Scanned ([id number]) Vital Signs *Quality* - Time spent: 16-45 minutes ([id number]) Assessment & Plan Assessment & Plan (1) Annual visit for general adult medical examination with abnormal findings: Code(s): Z00.01 - Encounter for general adult medical examination with abnormal findings Plan: Will check appropriate labs. Recommended dental visit every 6 months and regular eye exams, at least every 2 years, sees [facility]. Take adeq uate calcium in diet and vitamin-D 3 at 2000 IU per cap once a day, in addition to weight-bearing exercises to help maintain good muscle tone and weight control. Instructed to do self-breast exam, and recommended to get yearly mammogram, ordered today. She goes to [facility] for her routine Pap and pelvic exam, requested recent Pap smear results patient does not want to get any vaccines. (2) Obesity (BMI 30.0-34.9): Code(s): E66.9 - Obesity, unspecified Category: Medical Plan: Adherence to healthy eating habits and regular exercise advised (3) Lipoma of left forearm: Code(s): D17.22 - Benign lipomatous neoplasm of skin and subcutaneous tissue of left arm Category: Medical Plan: Patient states lump is not bothering her and seems to have decrease in size, will just continue to observe (4) History of vitamin D deficiency: Code(s): Z86.39 - Personal history of other endocrine, nutritional and metabolic disease Category: Medical Plan: Repeat vitamin-D level ordered (5) Encounter for counseling regarding advance directives: Code(s): Z71.89 - Other specified counseling Plan: Initiated the conversation about Advanced Directives. Advanced Directives help patients prepare for current and future decisions about their medical treatment and place of care. Discussed with patient that it is a process where a patients current condition and prognosis are reviewed, their wishes for information regarding their illness are elicited, and likely medical dilemmas are presented and options discussed. Healthcare proxy form completed today. The form can be amended as needed, reviewed yearly and make changes as needed Orders: Orders Lipid Panel Today D17.22 - Benign lipomatous neoplasm of skin and subcutaneous tissue of left arm, E66.9 - Obesity, unspecified, Z00.01 - Encounter for general adult medical examination with abnormal findings, Z13.1 - Encounter for screening for diabetes mellitus, Z13.220 - Encounter for screening for lipoid disorders, Z71.89 - Other specified counseling, Z86.39 - Personal history of other endocrine, nutritional and metabolic disease, Z86.59 - Personal history of other mental and behavioral disorders Aspartate Amino Transferase Today D17.22 - Benign lipomatous neoplasm of skin and subcutaneous tissue of left arm, E66.9 - Obesity, unspecified, Z00.01 - Encounter for general adult medical examination with abnormal findings, Z13.1 - Encounter for screening for diabetes mellitus, Z13.220 - Encounter for screening for lipoid disorders, Z71.89 - Other specified counseling, Z86.39 - Personal history of other endocrine, nutritional and metabolic disease, Z86.59 - Personal history of other mental and behavioral disorders MM tomosynthesis screening BI Today Z12.31 - Encounter for screening mammogram for malignant neoplasm of breast Vitamin D 25-OH Total Today D17.22 - Benign lipomatous neoplasm of skin and subcutaneous tissue of left arm, E66.9 - Obesity, unspecified, Z00.01 - Encounter for general adult medical examination with abnormal findings, Z13.1 - Encounter for screening for diabetes mellitus, Z13.220 - Encounter for screening for lipoid disorders, Z86.39 - Personal history of other endocrine, nutritional and metabolic disease, Z86.59 - Personal history of other mental and behavioral disorders Alanine Aminotransferase Today D17.22 - Benign lipomatous neoplasm of skin and subcutaneous tissue of left arm, E66.9 - Obesity, unspecified, Z00.01 - Encounter for general adult medical examination with abnormal findings, Z13.1 - Encounter for screening for diabetes mellitus, Z13.220 - Encounter for screening for lipoid disorders, Z71.89 - Other specified counseling, Z86.39 - Personal history of other endocrine, nutritional and metabolic disease, Z86.59 - Personal history of other mental and behavioral disorders Basic Metabolic Panel Fasting Today D17.22 - Benign lipomatous neoplasm of skin and subcutaneous tissue of left arm, E66.9 - Obesity, unspecified, Z00.01 - Encounter for general adult medical examination with abnormal findings, Z13.1 - Encounter for screening for diabetes mellitus, Z13.220 - Encounter for screening for lipoid disorders, Z71.89 - Other specified counseling, Z86.39 - Personal history of other endocrine, nutritional and metabolic disease, Z86.59 - Personal history of other mental and behavioral disorders
--- OUTSIDE RECORDS SUMMARY | 2024-10-09 09:05 | XMS_ITS | Clinical Summary ---
Author Organization [address] [facility] Building Address [address] [place] [phone] Phone Care Team Providers Care Pad Making Machine Operator Name Role Phone Suzy Guerra MD Primary Care Provider Unav ailable Allergies No known active allergies Medications acetaminophen (TYLENOL) 500 mg tablet Take 500 mg by mouth every 6 hours as needed Active desogestreL-eth inyl estradioL (APRI,TORRIE,Derrek WRIGHT,MIKAELA OM,RUBEN,KALL IGA) 0.15-0.03 mg per tablet Take 1 tablet by mouth daily 10/02/2019 Active ibuprofen (IBU-200 ORAL) 4 tablets prn daily Active 25/iron fum/folic/dha (-1 ORAL) Take by mouth. Active Active Problems Problem Noted Date Diagnosed Date Group B streptococcal infection during 04/06/2019 Abnormal glucose tolerance test 02/22/2019 Overview (09/13/2024): Abnormal glucose tolerance test- normal 3 hr Rh negative state in antepartum period 9 Overview (09/13/2024): S/p Rhogam Encounters Date Type Department Care Team Description 09/17/2024 10:00 AM EST Office Visit Obstetrics and Gynecology - [address] [phone] Aida Parikh DO Irregular menstrual cycle (Primary Dx) from Last 3 Months Immunizations Name Administration Dates Next Due HPV 9-valent (Gardisil) 9yo to less than 46yo 12/25/2009,08/27/2009,05/08/2008 Surgical History Surgery Date Site/Laterality Comments OOPHORECTOMY 12/25/2007 Right PROCEDURE: OK OOPHORECTOMY PARTIAL/TOTAL UNI/BI; COMMENT: dermoid cyst WISDOM TOOTH EXTRACTION 2003 Bilateral PROCEDURE: HISTORICAL WISDOM TEETH EXTRACTION Medical History Medical History Date Comments Patient denies medical problems DX:Patient denies medical problems Family History Medical History Relation Name Comments No Known Problems Brother 1 maternal h belle brother Other: Other Brother 2 heart valve iss ue, maternal half brother Other: Other Maternal Grandfather Quadrup al bi pass Heart attack Maternal Grandmother at age 48 No Known Problems Mother No Known Problems Sister Breast cancer Neg Hx Cervical cancer Neg Hx Colon cancer Neg Hx Ovarian cancer Neg Hx Uterine cancer Neg Hx Relation Name Status Comments Brother 1 Alive Brother 2 Alive Father Alive Maternal Grandfather Alive Maternal Grandmother Mother Alive Paternal Grandfather Paternal Grandmother Sister Alive Social History Tobacco Use Types Packs/Day Years Used Date Smoking Tobacco: Never Smokeless Tobacco: Never Tobacco Cessation:Counseling Given: Not Answered Alcohol Use Standard Drinks/Week Comments Yes 0 (1 standard drink = 0.6 oz pur e alcohol) Housing Instability Answer Date Recorde d Are you worried that in the next 2 months you may not have stable housing? No 09/12/2024 Food Access & Nutrition Answer Date Rec orded Do you have access to a vari ety of food including fruits and vegetables? Yes 09/12/2024 Access to Healthcare Answer Date Record ed Within the last 3 months, ho w many times did you visit the emergency department for your medical care? 0 09/12/2024 Health Literacy Answer Date Recorded How often do you need to hav e someone help you when you read instructions, pamphlets, or other written material from your doctor or pharmacy? Never 09/12/2024 Caregiver: How often do you need to have someone help you when you read instructions, pamphlets, or other written material from your doctor or pharmacy? Not on file 09/12/2024 Financial Risk Answer Date Recorded How hard is it for you to pa y for the very basics like food, housing, medical care, and air conditioning / heating? Very hard 09/12/2024 Transportation Answer Date Recorded Has the lack of transportati on kept you from meetings, work, or from getting things needed for daily living? No Has the lack of transportati on kept you from medical appointments or from getting medications? No 09/12/2024 Social Isolation Answer Date Recorded How often do you feel lonely or isolated from th ose around you? Never 09/12/2024 Food Risk Answer Date Recorded Within the past 12 months we worried whether our food would run out before we got money to buy more. Never true 09/12/2024 Within the past 12 months th e food we bought just didn't last and we didn't have money to get more. Never true 09/12/2024 Dependent Care Answer Date Recorded Do you need help finding or paying for care for your loved ones. For example, child care cook or elderly care for an older adult? No 09/12/2024 Education Answer Date Recorded Do you think completing more education or training, like finishing a GED, going to college, or learning a trade, would be helpful for you? N/A 09/12/2024 Employment and Income Answer Date Recor ded During the last four weeks, have you been actively looking for work? No 09/12/2024 Living Situation Answer Date Recorded What is your living situation? 0 09/12/2024 Comments No Sex and Gender Information Value Date Recorded Sex Assigned at Not on file Legal Sex Female 3:31 AM EST Gender Identity Not on file Sexual Orientation Not on file Obstetrics History Last Filed Vital Signs Vital Sign Reading Time Taken Comments Blood Pressure 138/90 09/17/2024 10:09 AM EST Pulse 87 09/17/2024 10:09 AM EST Temperature - - Respiratory Rate 18 09/17/2024 10:09 AM EST Oxygen Saturation - - Inhaled Oxygen Concentration - - Weight 88.5 kg (195 lb) 09/17/2024 10:09 AM EST Height 170.2 cm (5' 7 ) 09/17/2024 10:09 AM EST Body Mass Index 30.54 09/17/2024 10:09 AM EST Plan of Treatment Health Maintenance Due Date Last Done Comments Breast Cancer Screening 1983 Hepatitis B Vaccines (1 of 3 - 19+ 3-dose series) 12/09/2002 Cervical Cancer Screening: P ap Smear 08/30/2013 08/30/2010 COVID-19 Vaccine (2023-2 5 season) 2024 09/02/2021, 12/04/2020, 11/12/2020 Influenza Vaccine (#1) 2024 HIV Screening 09/12/2024 Hepatitis C Screening 09/12/2024 Depression Screening 09/12/2025 09/12/2024 Social Influencers of Health Screening 09/12/2025 09/12/2024 DTaP,Tdap,and Td Vaccines (2 - Td or Tdap) 02/08/2029 02/08/2019 HPV Vaccines Completed 12/25/2009, 08/27/2009, 05/08/2008 HIB Vaccines Aged Out No longer eligi ble based on patient's age to complete this topic Hepatitis A Vaccines Aged Out No long er eligible based on patient's age to complete this topic IPV Vaccines Aged Out No longer eligi ble based on patient's age to complete this topic MMR Vaccines Aged Out No longer eligi ble based on patient's age to complete this topic Meningococcal ACWY Vaccine Aged Out N o longer eligible based on patient's age to complete this topic Meningococcal B Vacine Aged Out No lo nger eligible based on patient's age to complete this topic Pneumococcal Vaccine: Pediatrics (0 to 5 Years) and At-Risk Patients (6 to 64 Years) Aged Out No longer eligible b ased on patient's age to complete this topic RSV Immunization Patients Under 20 months Aged Out No longer eligible b ased on patient's age to complete this topic Varicella Vaccines Aged Out No longer eligible based on patient's age to complete this topic Procedures Procedure Name Priority Date/Time Associated Diagnosis Comments THYROID STIMULATING HORMONE WITH REFLEX TO FREE T4 AND FREE T3 Routine 09/17/2024 11:00 AM EST Irregular menstrual cycle HM PAP SMEAR Routine 08/30/2010 from Last 3 Months or Most Recently Relevant to Health Maintenance Results * Thyroid stimulating hormone with reflex to free t4 and free t3 (09/17/2024 11:00 AM EST) TSH 0.97 0.40 - 4.00 mcIU/mL LAB CHEMISTRY METHOD 09/17/2024 3:[address] [facility] Blood Venous blood specimen / Unknown Venipuncture / Unknown 09/17/2024 11:00 AM EST 09/17/2024 11:00 AM EST us Aida Parikh DO LAB BLOOD ORDERABLES Final Re sult [facility] [address] [place] [address], * Hm Pap Smear (08/30/2010) Pap smear negative, abstracted Historical Provider MD HEALTH MAINTENANCE Final Result from Last 3 Months or Most Recently Relevant to Health Maintenance Insurance [address] [place] [phone] Care Teams Pad Making Machine Operator Relationship Specialty Start Date End Date Suzy Guerra MD Need Updated Address PCP - General Internal Medicine 09/13/24
--- OUTSIDE RECORDS SUMMARY | 2024-10-09 09:07 | XMS_ITS | Encounter Summary ---
Author Organization [facility] Address [address] [place] [phone] Care Team Providers Care Management And Budget Analyst Name Role Phone Suzy Guerra MD Primary Care Provider Unav ailable Reason for Referral * Imaging (Routine) - Authorized Specialty Diagnoses / Procedures Referred By Suzette valencia Referred To Contact Radiology Diagnoses Irregular menstrual cycle Procedures US Pelvis Non OB Complete w Transvaginal Aida Parikh DO [address] [place] [address] Phone: tel: fax: [address] [phone] Phone: tel: Referral ID Status Reason Start Date Expiration Date V isits Requested Visits Authorized [id number] Authorized 09/17/2024 09/17/2025 1 1 Reason for Visit * Reason Comments Menstrual Problem Encounter Details Date Type Department Care Team ([facility] Contact Info) Description 09/17/2024 10:00 AM EST Office Visit Obstetrics and [facility]necology - [facility] [address] [place] [phone] Aida Parikh DO [address] [place] [address] Irregular menstrual cycle (Primary Dx) Social History Tobacco Use Types Packs/Day Years Used Date Smoking Tobacco: Never Smokeless Tobacco: Never Tobacco Cessation:Counseling Given: Not Answered Alcohol Use Standard Drinks/Week Comments Yes 0 (1 standard drink = 0.6 oz pur e alcohol) [facility] Instability Answer Date Recorde d Are you [...] care for your loved ones. For example, childcare center administrator or elderly care for an older adult? [...] on file Sexual Orientation Not on file documented as of this encounter Last Filed Vital Signs Vital Sign Reading [...] Mass Index 30.54 09/17/2024 10:09 AM EST documented in this encounter Progress Notes * Aida Parikh, DO - 09/17/2024 10:00 AM EST Images from the original note were not included. CHIEF COMPLAINT: Menstrual Problem IDENTIFIER:Carmen Schroeder is a 38 y.o. female HPI: Pt presents today for abnormal bleeding. She reports for the last 6 months or so she has had 2 periods/month. The first is short lasting only about 3 days. She gets a bit of a break, sometimes a weekbefore she has a full 7-day period. She is also disappointed by weight gain, 10 pounds in the last few months. This is unintentional and aside form some increased intake over the holidays, is not explainable. She is sexually active with her with no concern for STIs. She is UTD was pap screening and hasn't ever had an abnormal pap. 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 Patient Active Problem List Diagnosis Abnormal glucose tolerance test Group B streptococcal infection during Rh negative state in antepartum period SOCIAL HISTORY: Social History Tobacco Use Smoking status: Never Smokeless tobacco: Never Substance Use Topics Alcohol use: Yes Drug use: No FAMILY HISTORY: Family History Problem Relation Name Age of Onset No Known Problems Mother No Known Problems Sister Heart attack Maternal Grandmother at age 48 Other (Other: Other) Maternal Grandfather Quadrupal bi pass No Known Problems Brother maternal half brother Other (Other: Other) Brother heart valve issue, maternal half brother Breast cancer Neg Hx Ovarian cancer Neg Hx Cervical cancer Neg Hx Uterine cancer Neg Hx Colon cancer Neg Hx I have reviewed the following sections of the chart: active problem list, medication list MEDICATIONS: Your medication list Accurate as of September 17, 2024 12:57 PM. If you have any questions, ask your nurse or doctor. CONTINUE taking these medications Instructions Last Dose Given Next Dose Due acetaminophen 500 mg tablet Commonly known as: TYLENOL Take 500 mg by mouth every 6 hours as needed desogestreL-ethinyl estradioL 0.15-0.03 mg per tablet Commonly known as: APRI,ENSKYCE,EMOQUETTE,ISIBLOOM,JULEBER,KALLIGA Take 1 tablet by mouth daily IBU-200 ORAL 4 tablets prn daily -1 ORAL Take by mouth. Contraception: Nothing ALLERGIES: No Known Allergies PHYSICAL EXAM: Visit Vitals BP (!) 138/90 (BP Location: Left arm, Patient Position: Sitting) Pulse 87 Resp 18 Ht 1.702 m (67 ) Wt 88.5 kg (195 lb) LMP 08/23/2024 BMI 30.54 kg/m?? OB Status Having periods Smoking Status Never BSA 2 m?? APPEARANCE:Healthy, alert, active, cooperative, and in no distress A bivalve speculum was used for a portion of the following exam: EXTERNAL GENITALIA: normal external genitalia, no erythema, no discharge URETHRA: midline with no erythema, mass or drainage VAGINA: normal mucosa, no discharge CERVIX: multiparious appearance UTERUS: soft, mobile, NT PSYCH: affect appropriate ASSESSMENT: 1. Irregular menstrual cycle PLAN: Reassured Carmen that her exam today is normal. Given weight gain and AUB, will check TSH and pelvic US Orders Placed This Encounter Procedures US Pelvis Non OB Complete w Transvaginal Thyroid stimulating hormone with reflex to free t4 and free t3 Aida Parikh DO documented in this encounter Plan of Treatment Scheduled Orders Name Type Priority Associated Diagnoses Orde r Schedule US Pelvis Non OB Complete w Transvaginal Imaging Routine Irregular menstrual cycle Expected: 09/17/2024, Expires: 09/17/2025 documented as of this encounter Results * Thyroid stimulating hormone with reflex to free t4 and free t3 (09/17/2024 11:00 AM EST) TSH 0.97 0.40 - 4.00 mcIU/mL LAB CHEMISTRY METHOD 09/17/2024 3:13 PM EST [facility] Blood Venous blood specimen / Unknown Venipuncture / Unknown 09/17/2024 11:00 AM EST 09/17/2024 11:00 AM EST us Aida Parikh DO LAB BLOOD ORDERABLES Final Re sult [facility] [address] [place] [address], documented in this encounter Visit Diagnoses Diagnosis Irregular menstrual cycle- Primary documented in this encounter Additional Health Concerns Assessment Noted Time PHQ-9 Depression Total Score: 1 09/12/19 25 10:59 AM EST documented as of this encounter Care Teams Management And Budget Analyst Relationship Specialty Start Date End Date Suzy Guerra MD Need Updated Address PCP - General Internal Medicine 09/13/24 documented as of this encounter
== END 2024-10-09 09:27 | disposition home or self-care (01) ==
PROVIDERS: PCP Internal Medicine; Visit Provider Internal Medicine
DX: Z00.00 Encounter for general adult medical examination without abnormal findings (principal); E66.9 Obesity, unspecified; Z68.30 Body mass index [BMI] 30.0-30.9, adult; D17.22 Benign lipomatous neoplasm of skin and subcutaneous tissue of left arm; Z86.39 Personal history of other endocrine, nutritional and metabolic disease; Z71.89 Other specified counseling

== ENCOUNTER → 2024-10-09 08:27 | Outpatient (BNVA) | payer OTHER, SELFPAY | PROVIDERS: PCP Internal Medicine; Visit Provider Internal Medicine | DX: Z00.01 Encounter for general adult medical examination with abnormal findings (principal); E66.9 Obesity, unspecified; D17.22 Benign lipomatous neoplasm of skin and subcutaneous tissue of left arm; Z71.89 Other specified counseling; Z86.39 Personal history of other endocrine, nutritional and metabolic disease | CPT/HCPCS: 96127 ==

== ENCOUNTER 2024-12-23 09:46 | Outpatient (REF) | payer OTHER, SELFPAY ==
--- OUTSIDE RECORDS SUMMARY | 2024-12-23 11:01 | XMS_ITS | Clinical Summary ---
Author Organization [place] [address] [address] [facility] Building Address [address] [place] [phone] Phone Care Team Providers Care Manager Services Name Role Phone Suzy Guerra MD Primary Care Provider Unav ailable Allergies No known active allergies Medications acetaminophen (TYLENOL) 500 mg tablet Take 500 mg by mouth every 6 hours as needed Active desogestreL-eth inyl estradioL (APRI,Derrek BROWNLEE,MIKAELA OM,RUBEN,KALL IGA) 0.15-0.03 mg per tablet Take [...] antepartum period 9 Overview (09/13/2024): S/p Rhogam Immunizations Name Administration Dates Next Due HPV 9-valent (Gardisil) 9yo to less than 46yo 12/25/2009,08/27/2009,05/08/2008 Surgical History Surgery Date Site/Laterality Comments OOPHORECTOMY 12/25/2007 Right PROCEDURE: [place] OOPHORECTOMY PARTIAL/TOTAL UNI/BI; COMMENT: dermoid cyst WISDOM [...] for your loved ones. For example, child adolescent psychiatrist or elderly care for an older adult? [...] (2023-2 5 season) 2024 09/02/2021, 12/04/2020, 11/12/2020 HIV Screening 09/12/2024 Hepatitis C Screening 09/12/2024 Influenza Vaccine (Season Ended) 2025 Depression Screening 09/12/2025 09/12/2024 Social Influencers of [...] age to complete this topic Meningococcal B Vaccine Aged Out No l onger eligible based on patient's age to complete [...] Procedure Name Priority Date/Time Associated Diagnosis Comments PAP SMEAR Routine 08/30/2010 from Last 3 Months or Most Recently Relevant to Health Maintenance Results * Pap Smear (08/30/2010) Pap smear negative, abstracted Historical Provider HEALTH MAINTENANCE Final Result from Last 3 Months or Most Recently Relevant to Health Maintenance Insurance Care Teams Manager Services Relationship Specialty Start Date End Date Suzy Guerra MD Need Updated Address PCP - General Internal Medicine 09/13/24
== END 2024-12-23 09:47 | disposition home or self-care (01) ==
LOC: HO.MAMMO 09:46
PROVIDERS: PCP Internal Medicine; Visit Provider Internal Medicine
DX: Z12.31 Encounter for screening mammogram for malignant neoplasm of breast (principal)
CPT/HCPCS: 77063; 77067

== ENCOUNTER → 2024-12-23 10:00 | Outpatient (BNV) | payer OTHER, SELFPAY | PROVIDERS: PCP Internal Medicine; Visit Provider Internal Medicine | DX: Z12.31 Encounter for screening mammogram for malignant neoplasm of breast (principal) | CPT/HCPCS: 77063; 77067 ==

== ENCOUNTER 2025-04-09 17:19 | Emergency (ER) | payer OTHER, SELFPAY ==
[2025-04-09] VITALS (7 sets, daily range): BP systolic 134–190; BP diastolic 76–104; PULSE 83–122; RESP 18–20; TEMP 36.6–36.9; O2SAT 95–100; BMI 33.9
--- NOTE | 2025-04-09 17:25 | ED.GENADULT ---
HPI - General Adult General Chief complaint: Arrhythmia/Palpitations Stated complaint: increase heart rate, sob, sweaty hands Time Seen by Provider: 04/09/25 18:15 Source: patient Mode of arrival: ambulatory Limitations: no limitations History of Present Illness ED Provider: HPI narrative: Patient no significant past medical history apparently was driving just prior to arrival noticed palpitation with heart rate reaching to 160 lasted for about 2 hours patient felt dizzy lightheaded during the episode on arrival patient's heart rate was in 110 sinus tachycardia patient never had similar palpitation in the past no recent intake of caffeine or energy drinks Related Data Home Medications ?Medication ?Instructions ?Recorded ?Confirmed multivitamin 1 tab PO DAILY 09/29/20 08/14/23 Allergies Allergy/AdvReac Type Severity Reaction Status Date / Time No Known Allergies Allergy Verified 04/09/25 17:29 Review of Systems Review of Systems: Yes all other systems are reviewed and are negative PMFSH Past Medical History Medical History History of anxiety History of vitamin D deficiency Lipoma of left forearm Vitamin D deficiency Obesity (BMI 30.0-34.9) Dermoid cyst Surgical History Hx of wisdom tooth extraction History of right oophorectomy Family History Family History Maternal Grandmother Myocardial infarction Brother Substance use disorder Mental health disorder Sister Mental health disorder Mother Mental health disorder Social History Social History Housing: House Alcohol intake: current Alcohol intake frequency: holidays/special occasions only Patient Tobacco Use Status: Never used Tobacco Smoked in Last 30 Days: No e-Cigarette/Vaping Use: Never Used Use of substances other than those prescribed or required for medical reasons: No Advance Directives: Yes Advance Directives on File: Yes Advance Directives Date on File: 10/09/24 Do you have a plan to hurt others: No Plan service: No Current occupational status: employed Cognitive needs: No Hearing needs: No Vision needs: Yes Physical Exam ED Vital Signs: Vital Signs - 24 hr 04/09/25 19:28 04/09/25 19:29 04/09/25 19:30 Temperature Pulse Rate 95 93 96 Respiratory Rate Blood Pressure 142/82 H 135/94 H 134/91 H Pulse Oximetry Oxygen Delivery Method 04/09/25 19:45 04/09/25 19:52 Temperature 98.4 F 98.4 F Pulse Rate 83 83 Respiratory Rate 18 18 Blood Pressure 142/76 H 142/76 H Pulse Oximetry 100 100 Oxygen Delivery Method Room Air Room Air BMI result Body Mass Index 33.9 Appearance: Alert. Oriented X3. No acute distress. Eyes: No pallor or icterus ENT: Pharynx normal. Oral Mucosa moist thyroid not palpable Neck: Normal inspection. Neck supple. CVS: Normal heart rate and rhythm. Pulses normal. Respiratory: No respiratory distress. Equal air entry bilateral, no wheezing/rales/rhonchi Abdomen: Soft and nontender. Bowel sounds are present, no mass palpable, no CVA tenderness Skin: Skin warm and dry. Normal skin color. Normal skin turgor. Extremities: No lower extremity edema. No calf tenderness Neuro: Oriented X 3. No motor deficit. Course Course Course Narrative: This is a rapid medical exam performed by Leticia Bhatt NP: Additional HPI, ROS, PE not included below will be deferred to primary provider. Patient is a 39-year-old female presenting to the ED with complaint of rapid HR, dizziness, hands clammy. Noted to be as high as 166 on apple watch. Is on OCP. Recent weight gain of 20-25lbs over past 3 mos. Plan: EKG, labs Medications Administered Discontinued Medications Generic Name Dose Route Start Last Admin Trade Name Victor Hugoq PRN Reason Stop Dose Admin Potassium Bicarbonate 50 meq 04/09/25 18:34 04/09/25 18:45 Potassium Bicarbonate/Cit Ac 25 Meq Tablet.Eff PO 04/09/25 18:35 50 meq ONCE ONE Administration Medical Decision Making Medical Decision Making MDM Narrative: Patient's sudden onset of palpitation clinically has a SVT no prior episodes in the past at this time patient is sinus tachycardic no anemia chemistry showed potassium 3.2 which will replace p.o. potassium Differential Diagnosis Differential Diagnoses: The differential diagnosis associated with the presentation includes Atrial fibrillation/atrial tachycardia/SVT Lab Data [facility] Lab Attestation statement: I reviewed the patient's lab results. 04/09/25 17:39 04/09/25 17:39 Labs: Lab Results 04/09/25 Range/Units 17:39 WBC 8.5 (4.8-10.8) X10*3/uL RBC 4.35 (4.20-5.50) X10*6/uL Hgb 14.2 (12.0-16.0) g/dl Hct 40.6 (37.0-47.0) % MCV 93.3 (80.0-98.0) fL MCH 32.6 (27.0-33.0) pg MCHC 35.0 (31.0-35.0) g/dl RDW 12.3 (11.0-16.0) % Plt Count 258 (160-400) X10*3/uL MPV 9.4 (9.4-12.3) fL Immature Gran % (Auto) 0.6 H (0.0-0.4) % Neut % (Auto) 61.5 (45-73) % Lymph % (Auto) 29.4 (20-40) % [place] % (Auto) 7.2 (2-11) % Eos % (Auto) 0.9 (0-4) % Baso % (Auto) 0.4 (0-2) % Lymph # (Auto) 2.5 (1.2-4.9) X10*3/uL [place] # (Auto) 0.6 (0.1-1.2) X10*3/uL Eos # (Auto) 0.1 (0.0-0.4) X10*3/uL Baso # (Auto) 0.0 (0.0-0.2) X10*3/uL Abs Immat Gran (auto) 0.05 H (0.00-0.03) X10*3/uL Absolute Neuts (auto) 5.2 (2.0-8.3) x10*3/uL Absolute Nucleated RBC 0.000 (0.0-0.012) X10*3/uL Nucleated RBC % (auto) 0.0 (0.0-0.2) /100WBC PT 10.5 L (10.9-12.4) SEC INR 0.9 (0.9-1.1) Sodium 136 (135-145) mmol/L Potassium 3.2 L (3.3-5.1) mmol/L Chloride 102 (96-108) mmol/L Carbon Dioxide 23 (22-29) mmol/L Anion Gap 14 (12-20) BUN 21 H (9-16) mg/dL Creatinine 0.73 (0.5-1.4) mg/dL Estim Creat Clear Calc 122.0 Estimated GFR > 60 Random Glucose 95 (60-115) mg/dL Calcium 8.6 D (8.4-10.2) mg/dL Magnesium 1.8 (1.6-2.6) mg/dL Total Bilirubin 0.4 (0.0-1.0) mg/dL AST 28 (5-31) U/L ALT 28 (0-31) U/L Alkaline Phosphatase 44 (39-117) U/L Troponin I High Sens < 2.7 (<3.5-17.0) ng/L Total Protein 7.0 (6.5-8.0) g/dL Albumin 4.4 (3.5-5.0) g/dL TSH 1.53 (0.32-4.0) uIU/mL Beta HCG, Quant < 2 mIU/mL Independent Interpretation I performed an independent interpretation of an: EKG Interpretation: Sinus tachycardia ventricular rate of [address]-T changes no acute ischemia Discharge Plan Discharge Clinical Impression: Palpitations, Supraventricular tachycardia Patient Disposition: Home, Self-Care Instructions: Heart Palpitations (ED) Additional Instructions: Avoid caffeine intake Drink plenty of fluids Follow up with your PCP further evaluation including Holter monitoring Report to the ER if recurrence of the episode Prescriptions: No Action multivitamin Tablet 1 tab PO DAILY Referrals: Todd Mancia MD [Physician, Cardiology] Referral Note: Palpitation Interventions: ED Discharge Assessment Last Done: 04/09/25 19:52 Discharge Date/Time: 04/09/25 19:56 Print Language: Mohawk
--- NOTE | 2025-04-09 17:26 | ECG_ITS ---
Test Reason : PALPITATION/DIZZNESS Blood Pressure : */* mmHG Vent. Rate : 117 BPM Atrial Rate : 117 BPM P-R Int : 174 ms QRS Dur : 88 ms QT Int : 324 ms P-R-T Axes : 68 37 42 degrees QTcB Int : 451 ms Sinus tachycardia Biatrial enlargement Nonspecific ST abnormality Abnormal ECG No previous ECGs available Referred By: Maty Bhatt Electronically Signed By: Todd Mancia
[2025-04-09 17:46] LABS: MANUAL DIFF FLAG NO
[2025-04-09 17:49] LABS: Hematocrit 40.6 % (37.0-47.0); Hemoglobin 14.2 g/dl (12.0-16.0); Imm Gran Abs Auto 0.05 X10*3/uL (0.00-0.03); Imm Gran Pct Auto 0.6 % (0.0-0.4); Lymphocytes Absolute Auto 2.5 X10*3/uL (1.2-4.9); Mean Corpuscular HGB Conc 35.0 g/dl (31.0-35.0); Mean Corpuscular Hemoglobin 32.6 pg (27.0-33.0); Mean Corpuscular Volume 93.3 fL (80.0-98.0); NRBC Abs Auto 0.000 X10*3/uL (0.0-0.012); NRBC Pct Auto 0.0 /100WBC (0.0-0.2); Platelet Count 258 X10*3/uL (160-400); Red Blood Count 4.35 X10*6/uL (4.20-5.50); White Blood Count 8.5 X10*3/uL (4.8-10.8)
[2025-04-09 17:54] LABS: INTERNATIONAL NORM RATIO 0.9 (0.9-1.1); Prothrombin Time 10.5 SEC (10.9-12.4)
[2025-04-09 18:03] LABS: Alanine Aminotransferase 28 U/L (0-31); Albumin Level 4.4 g/dL (3.5-5.0); Alkaline Phosphatase 44 U/L (39-117); Anion Gap 14 (12-20); Aspartate Amino Transferase 28 U/L (5-31); Blood Urea Nitrogen 21 mg/dL (9-16); Calcium 8.6 mg/dL (8.4-10.2); Carbon Dioxide 23 mmol/L (22-29); Chloride 102 mmol/L (96-108); Creatinine Clr Calc Pharmacy 122.0; Estimated Glomerular Filt Rate > 60; Magnesium 1.8 mg/dL (1.6-2.6); Potassium 3.2 mmol/L (3.3-5.1); Sodium 136 mmol/L (135-145); Total Protein 7.0 g/dL (6.5-8.0)
[2025-04-09 18:15] LABS: Troponin-I High Sensitivity < 2.7 ng/L (<3.5-17.0)
[2025-04-09] MEDS: Potassium Bicarbonate/Cit AC 25 MEQ TABLET.EFF 50 MEQ PO (18:45)
== END 2025-04-09 19:56 | disposition home or self-care (01) ==
LOC: HO.ED 19:46
PROVIDERS: Registered Nurse Emergency; Emergency Provider Internal Medicine; PCP Internal Medicine
DX: I47.10 Supraventricular tachycardia, unspecified (principal); I49.8 Other specified cardiac arrhythmias; R00.2 Palpitations; R42 Dizziness and giddiness; R10.2 Pelvic and perineal pain; R06.02 Shortness of breath; Z79.899 Other long term (current) drug therapy
CPT/HCPCS: 36415; 80053; 83735; 84443; 84484; 84702; 85025; 85610; 93005; 99283; 99285

== ENCOUNTER → 2025-04-09 17:26 | Outpatient (BNV) | payer OTHER, SELFPAY | PROVIDERS: Emergency Provider Internal Medicine; PCP Internal Medicine; Visit Provider Internal Medicine Cardiovascular Disease | DX: I51.7 Cardiomegaly (principal); R00.0 Tachycardia, unspecified | CPT/HCPCS: 93010 ==